=== PATIENT | female | born 1955 | race Caucasian/White ===

== ENCOUNTER 2021-04-12 18:04 | Emergency (ER) | payer MEDICARE, BC ==
[~2021-04-12 18:04] MED LIST: PREDNISONE 50 M50 MG PO
[2021-04-12 22:10] LABS: HEMOGLOBIN 17.1 gm/dl (12.3-15.3); RED BLOOD COUNT 5.93 M/UL (4.00-5.10); WHITE BLOOD COUNT 11.5 K/UL (4.5-11.0)
[2021-04-12 22:25] LABS: BUN/CREATININE RATIO 31 (0-10)
[2021-04-12] MEDS ORDERED: DOXYCYCLINE HY100 M2 PO (23:14)
== END 2021-04-12 23:35 | disposition home or self-care (01) ==
LOC: ER1 18:04
PROVIDERS: Student in an Organized Health Care Education/Training Program
DX: J18.9 Pneumonia, unspecified organism (principal); E86.0 Dehydration; R05.9 Cough, unspecified; I10 Essential (primary) hypertension; Z90.710 Acquired absence of both cervix and uterus; Z90.49 Acquired absence of other specified parts of digestive tract; Z20.822 Contact with and (suspected) exposure to COVID-19
CPT/HCPCS: 0240U; 71045; 80048; 85025; 96374; 99283; J1100

== ENCOUNTER → 2022-01-23 | Outpatient (CLI) | payer MEDICARE, BC ==
[~2022-01-23] MED LIST changes: +DOXYCYCLINE HY100 M2 PO
== END ==
LOC: EXRD 10:30
DX: M81.0 Age-related osteoporosis without current pathological fracture (principal); M85.88 Other specified disorders of bone density and structure, other site
CPT/HCPCS: 77080